=== PATIENT | female | born 1955 | race African-American/Black ===

== ENCOUNTER 2020-06-25 10:41 | Day surgery (SDC) | payer MEDICARE ==
[~2020-06-25 10:41] MED LIST: CHONDR SU A NA/HYALUR INTRAOC KIT (SURGICARE) ONE; EPINEPHRINE INJ/PF 1 MG/1 ML AMPULE ONE; KETOROLAC TROMETHAMINE 0.45% 4 DROP/0.4 ML DROPERETTE OS PRN; LIDOCAINE 1%/PHENYLEPHRINE 1.5% 1 ML VIAL ONE
[2020-06-25] MEDS ORDERED: LIDOCAINE 2% INJ-PF (20 MG/ML) 10 ML AMPUL ONE ×3 (11:01→14:47)
[2020-06-25] MEDS ORDERED: BUPIVACAINE HCL 0.75% INJ/PF (7.5 MG/1 ML) 10 ML SDV ONE (11:02)
[2020-06-25] MEDS ORDERED: HYALURONIDASE INJ 150 UNIT/1 ML VIAL ONE (11:02)
[2020-06-25] MEDS: TROPICAMIDE 1% OPH SOLN 15 ML OS PRN ×3 (11:12→11:32)
[2020-06-25] MEDS: BESIFLOXACIN HCL 0.6% OPH SUSP 5 ML BOTTLE OS PRN ×4 (11:12→12:22)
[2020-06-25] MEDS: CYCLOPENTOLATE 0.2%/PHENYLEPHRINE 1% OPH SOLN 2 ML OS PRN ×3 (11:12→11:32)
[2020-06-25] MEDS: TETRACAINE HCL 0.5% OPH SOLN 4 ML OS PRN ×3 (11:13→11:48)
[2020-06-25] MEDS ORDERED: MIDAZOLAM 2 MG/2 ML INJ ONE (11:32)
[2020-06-25] MEDS ORDERED: PROPOFOL INJ 200 MG/20 ML VIAL IV ONE (11:32)
[2020-06-25] MEDS ORDERED: FENTANYL CITRATE INJ/PF 100 MCG/2 ML AMPUL ONE (11:32)
[2020-06-25] MEDS ORDERED: TRYPAN BLUE 0.06 % OPH SOLN 0.5 ML DISP.SYRIN ONE (11:55)
[2020-06-25] MEDS: TOBRAMYCIN SULFATE/DEXAMETH OPH OINTMENT 3.5 GM ONE ×2 (12:09→12:22)
[2020-06-25] MEDS ORDERED: HYALURONATE SODIUM SYRINGE 0.55 ML ONE (12:14)
[2020-06-25] MEDS ORDERED: CHONDR SU A NA/HYALUR SOD 0.5 ML DISP.SYRIN ONE (12:14)
[2020-06-25] MEDS: PREDNISOLONE ACETATE 1% OPH SUSP 5 ML OS PRN ×2 (12:22)
[2020-06-25] MEDS: DORZOLAMIDE HCL 2%/TIMOLOL MALEAT 0.5% OPH SOLN 10 ML OS PRN ×2 (12:22)
--- NOTE | 2020-06-26 09:53 | Operative Report ---
Operative Report-[facility] Operative Report: DATE OF SURGERY: June 25, 2020 PREOPERATIVE DIAGNOSIS: Mature cataract, left eye POSTOPERATIVE DIAGNOSIS: Mature cataract, left eye OPERATION: Complex cataract extraction with insertion of an IOL of the left eye. With use of trypan blue dye Intraocular Lens Model: [20.0 diopter SN 60 WF] patient underwent surgery for difficulty seeing small print SURGEON: Jak Lewis MD ANESTHESIA: Topical and retrobulbar block PROCEDURE: After obtaining appropriate consent, the patient's left eye was prepp ed and draped in a sterile fashion as well as the surgeon in the sterile manner and cataract surgery was started. First a paracentesis blade was used to make a side-port incision. Viscoelastic was used to inflate the anterior chamber. Next a 2.4 mm incision was made with a 2.4 mm blade, clear corneal temporarily. Prior to making the capsulorrhexis trypan blue dye was used to stain the anterior capsule. A continuous capsulorrhexis was made using a cystotome and Utrata forceps. Following this hydrodissection was carried out to make the lens fully loose and mobile and it was rotated 90 degrees. Following this, a divide and conquer technique was used to phacoemulsify the lens. The remaining cortex was removed with an irrigation/aspiration. Provisc was instilled into the capsular bag to inflate the bag.The intraocular lens was placed. The remaining viscoelastic material was removed with irrigation/aspiration. Following this, the incision was found to be watertight. Besivance and Cosopt was instilled into the eye and a protective shield was placed over the eye. The patient was returned to the postoperative recovery in a stable condition.
== END 2020-06-25 12:55 | disposition home or self-care (01) ==
LOC: SC 10:41
PROVIDERS: ATTEND Internal Medicine
DX: H25.89 Other age-related cataract (principal); H57.03 Miosis; H55.01 Congenital nystagmus; E03.9 Hypothyroidism, unspecified; Z79.899 Other long term (current) drug therapy; K21.9 Gastro-esophageal reflux disease without esophagitis; F17.210 Nicotine dependence, cigarettes, uncomplicated; Z01.812 Encounter for preprocedural laboratory examination; Z20.822 Contact with and (suspected) exposure to COVID-19
CPT/HCPCS: 66982; V2632; U0003; J2250; J3490 ×7; A9270 ×2; J0171; J3010; J2704; J3470; C9803; 142; 87635